=== PATIENT | female | born 1955 | race Caucasian/White ===

== ENCOUNTER → 2016-06-18 | Outpatient (CLI) | payer MEDICAID | LOC: FIMAGING 14:18 | PROVIDERS: ATTEND Family Medicine | DX: M25.561 Pain in right knee (principal); M25.461 Effusion, right knee ==

== ENCOUNTER 2016-10-24 12:58 | Emergency (ER) | payer MEDICAID ==
[2016-10-24 13:02] VITALS: TEMP 98.2
--- NOTE | 2016-10-24 13:19 | EDPHY ---
HPI/HX/ROS/PE/MDM Narrative: CHIEF COMPLAINT: "My pancreas is just driving me crazy" HPI: The patient is a 61 y/o female complaining of chronic epigastric pain secondary to pancreatitis. She reports that her pain began in 2002 following an ERCP procedure and she now has chronic daily pain which is managed by her pain clinic. She currently complains of pain located in a "U" underneath her left breast and extending into her epigastrium. She has had difficulty eating due to nausea and has been unable to eat anything today. She reports associated non bloody vomiting. She notes that her doctors have been reducing her pain meds due to an upcoming ankle surgery. She is here because she wants help controlling pain and wants to be admitted if possible. REVIEW OF SYSTEMS: Aside from elements discussed in the HPI, a comprehensive 10-point review of systems was reviewed and is negative. PMH: Chronic abdominal pain secondary to pancreatitis, ERCP in 2002, allergy related asthma, hypertension, ulcerative colitis I reviewed prior medical records including admission on 08/07/14 for abdominal pain. SOCIAL HISTORY: Lives with her son. No tobacco use. GI Doctor is Dr. Bernal at [facility]. PHYSICAL EXAM: General:Patient is alert, in no acute distress. ENT:Eyes are normal to inspection. ENT inspection normal. Neck: Normal inspection. Full range of motion. Respiratory:No respiratory distress. Breath sounds normal bilaterally. Cardiovascular: Regular rate and rhythm. Strong peripheral pulses. Normal cap refill. Abdomen: Moderate epigastric tenderness. There are no peritoneal signs. There are normal bowel sounds. Back: Normal to inspection. No tenderness to palpation. Skin: Normal color. No rash. Warm and dry. Extremities: Normal appearance. Full range of motion. Neuro: Oriented x3. Normal motor function. Normal sensory function. ED Course: This is a 64 y/o female with a history of chronic pain presenting with the same epigastric pain today as prior and is complaining of difficulty eating due to nausea. She notes her pain medication dosing has recently been decreased. She has moderate epigastric tenderness but her exam is otherwise unremarkable. Plan for IV, basic labs and 1L IV NS. Reassessed patient and discussed lab work. Her lipase is within normal limits. She confirms she has access to pain and nausea medication at home. She does not meet criteria for admission. I've recommended following up with her pain doctor or PCP for continued symptoms. Return precautions given. She understands follow up instructions. MDM: This patient presents with what she describes as an exacerbation of her chronic abdominal pain related to pancreatitis, and states it is exactly the same as prior pancreatitis pain. She admits that her chronic pain meds have been decreased by her physician in order to prepare for ankle surgery. She has not vomited here in the ED. Her lipase is normal, as are the rest of her LFTs. She is under a pain contract. She was given IV hydration here and has a reassuring exam. The patient requests admission to the hospital, which appears to be similar to other ED visits, but I explained to her that I see no medical indication necessitating admission. She is clearly not dehydrated, and there is no objective evidence of acute pancreatitis. I suggested the she discuss her symptoms with her pain specialist. - Data Points Laboratory Results: Laboratory Results 10/24/16 14:00 10/24/16 14:00 10/24/16 10/24/16 14:00 14:00 WBC 6.12 10^3/uL 10^3/uL (3.80-9.50) RBC 4.33 10^6/uL 10^6/uL (4.18-5.33) Hgb 14.1 g/dL g/dL (12.6-16.3) Hct 41.2 % % (38.0-47.0) MCV 95.2 fL fL (81.5-99.8) MCH 32.6 pg pg (27.9-34.1) MCHC 34.2 g/dL g/dL (32.4-36.7) RDW 13.5 % % (11.5-15.2) Plt Count 206 10^3/uL 10^3/uL (150-400) MPV 9.7 fL fL (8.7-11.7) Neut % (Auto) 57.1 % % (39.3-74.2) Lymph % (Auto) 32.7 % % (15.0-45.0) [place] % (Auto) 6.9 % % (4.5-13.0) Eos % (Auto) 2.8 % % (0.6-7.6) Baso % (Auto) 0.3 % % (0.3-1.7) Nucleat RBC Rel Count 0.0 % % (0.0-0.2) Absolute Neuts (auto) 3.50 10^3/uL 10^3/uL (1.70-6.50) Absolute Lymphs (auto) 2.00 10^3/uL 10^3/uL (1.00-3.00) Absolute Monos (auto) 0.42 10^3/uL 10^3/uL (0.30-0.80) Absolute Eos (auto) 0.17 10^3/uL 10^3/uL (0.03-0.40) Absolute Basos (auto) 0.02 10^3/uL 10^3/uL (0.02-0.10) Absolute Nucleated RBC 0.00 10^3/uL 10^3/uL (0-0.01) Immature Gran % 0.2 % % (0.0-1.1) Immature Gran # 0.01 10^3/uL 10^3/uL (0.00-0.10) Sodium 137 mEq/L mEq/L (134-144) Potassium 5.1 mEq/L mEq/L (3.5-5.2) Chloride 103 mEq/L mEq/L (97-110) Carbon Dioxide 23 mEq/l mEq/l (22-31) Anion Gap 11 mEq/L mEq/L (8-16) BUN 17 mg/dL mg/dL (7-23) Creatinine 0.9 mg/dL mg/dL (0.6-1.0) Estimated GFR > 60 Glucose 80 mg/dL mg/dL (70-100) Calcium 9.6 mg/dL mg/dL (8.5-10.4) Total Bilirubin 0.8 mg/dL mg/dL (0.1-1.4) Conjugated Bilirubin 0.3 mg/dL mg/dL (0.0-0.5) Unconjugated Bilirubin 0.5 mg/dL mg/dL (0.0-1.1) AST 31 IU/L IU/L (14-46) ALT 36 IU/L IU/L (9-52) Alkaline Phosphatase 80 IU/L IU/L (38-126) Total Protein 7.3 g/dL g/dL (6.3-8.2) Albumin 4.1 g/dL g/dL (3.5-5.0) Lipase 98 IU/L IU/L (23-300) Medications Given: Discontinued Medications Sodium Chloride (Ns) 1,000 mls @ 0 mls/hr IV EDNOW ONE; Wide Open PRN Reason: Protocol Stop: 10/24/16 13:25 Last Admin: 10/24/16 14:04 Dose: 1,000 mls General Time Seen by Provider: 10/24/16 13:16 Initial Vital Signs: Initial Vital Signs Temperature (C) 36.8 C 10/24/16 13:00 Heart Rate 63 10/24/16 13:00 Respiratory Rate 16 10/24/16 13:00 Blood Pressure 158/90 H 10/24/16 13:00 O2 Sat (%) 91 L 10/24/16 13:00 O2 Delivery Mode Room Air Allergies/Adverse Reactions: ciprofloxacin [From Cipro] Allergy (Severe, Verified 06/13/15 20:19) RUINED LIGAMENTS AND TENDONS ciprofloxacin HCl [From Cipro] Allergy (Severe, Verified 06/13/15 20:19) RUINED LIGAMENTS AND TENDONS levofloxacin [From Levaquin] Allergy (Severe, Verified 06/13/15 20:19) RUINED LIGAMENTS AND TENDONS NSAIDS (Non-Steroidal Anti-Inflamma [Nsaids] Allergy (Severe, Verified 06/13/15 20:19) Other-Enter Comments atropine sulfate [From Lomotil] Allergy (Unknown, Verified 06/13/15 20:19) diphenoxylate HCl [From Lomotil] Allergy (Unknown, Verified 06/13/15 20:19) methylprednisolone sodium succinate [From Solu-Medrol] Allergy (Verified 20:19) Home Medications: Medication Instructions Recorded Albuterol [Proventil Inhaler HFA 2 puffs PO Q4 PRN 06/24/13 (*)] Calcium Carb/Vit D3/Minerals 600 mg PO BID 06/24/13 [Calcium 1,200 mg Tablet Chew] Diazepam [Valium 10 MG (*)] 10 mg PO HS PRN 06/24/13 Fluticasone Nasal [Flonase Nasal 2 sprays NASAL DAILY 06/24/13 [place]] Fluticasone/Salmeter 100/50Mcg 1 puffs IH BID 06/24/13 [Advair 100/50 (*)] Furosemide [Lasix 20 MG (*)] 20 mg PO TID 06/24/13 Herbals/Supplements -Info Only 1 each PO AD 06/24/13 Lipase/Protease/Amylase [Creon 24 2 cap PO QID 06/24/13 (*)] Venlafaxine Xr [Effexor Xr] 300 mg PO DAILY 06/24/13 oxyCODONE CR [Oxycontin] 80 mg PO BID 06/24/13 oxyCODONE IR [Oxycodone Ir (*)] 30 mg PO Q6H PRN 06/24/13 valACYclovir [Valtrex (*)] 500 mg PO BID 06/24/13 Atenolol [Tenormin 50 mg (*)] 50 mg PO DAILY 08/16/13 Diclofenac Sodium [Voltaren] 1 he TP QID PRN 08/07/14 Montelukast Sodium [Singulair 10 10 mg PO DAILY@1800 08/07/14 mg (*)] [place]-3 Ethyl Est-Lovaza [Lovaza 1 2 gm PO BID 08/07/14 gm (*)] Promethazine HCl 25 mg PO BID PRN 08/07/14 Ranitidine HCl [Zantac] 150 mg PO BID 08/07/14 Vitamin B Complex [Super B-50 1 each PO DAILY 08/07/14 Complex] Departure - Departure Disposition: Home, Routine, Self-Care Clinical Impression: Chronic abdominal pain, Nausea Condition: Good Instructions: Chronic Abdominal Pain (ED) Additional Instructions: 1. Take your prescribed medications as directed for symptoms. 2. Follow up with your pain specialist as needed for unimproved symptoms. Referrals: Patient,NotPresent [Primary Care Provider] - As per Instructions [facility],. [Clinic] - As per Instructions Report Scribed for: Ashok Champagne Report Scribed by: Christen Galvez Date of Report: 10/24/16 Time of Report: 13:29 Physician Review and Approval Statement: Portions of this note were transcribed by an ED scribe. I personally performed the history, physical exam, and medical decision making; and confirm the accuracy of the information in the transcribed note.
[2016-10-24] MEDS ORDERED: NS 1,000 ML IV ONE (13:24)
[2016-10-24 14:06] LABS: % IMMATURE GRANULYOCYTES 0.2 % (0.0-1.1); ABSOLUTE IMMATURE GRANULOCYTES 0.01 10^3/uL (0.00-0.10); ADD DIFF? NO; ADD MORPH? NO; ADD SCAN? NO; ATYPICAL LYMPHOCYTE FLAG 10 (0-99); FRAGMENT RBC FLAG 0 (0-99); HEMATOCRIT 41.2 % (38.0-47.0); HEMOGLOBIN 14.1 g/dL (12.6-16.3); LEFT SHIFT FLG 0 (0-99); LIPEMIA HEMOLYSIS FLAG 90 (0-99); MEAN CELL HEMOGLOBIN 32.6 pg (27.9-34.1); MEAN CELL HEMOGLOBIN CONCENTR. 34.2 g/dL (32.4-36.7); MEAN CELL VOLUME 95.2 fL (81.5-99.8); MEAN PLATELET VOLUME 9.7 fL (8.7-11.7); PLATELET CLUMPS FLAG 0 (0-99); PLATELET COUNT 206 10^3/uL (150-400); RED BLOOD CELL COUNT 4.33 10^6/uL (4.18-5.33); RED CELL DISTRIBUTION WIDTH 13.5 % (11.5-15.2)
[2016-10-24 14:19] LABS: ALANINE AMINOTRANSFERASE 36 IU/L (9-52); ALBUMIN 4.1 g/dL (3.5-5.0); ALKALINE PHOSPHATASE 80 IU/L (38-126); ANION GAP 11 mEq/L (8-16); ASPARTATE AMINOTRANSFERASE 31 IU/L (14-46); BILIRUBIN,TOTAL 0.8 mg/dL (0.1-1.4); BILIRUBIN-CONJUGATED 0.3 mg/dL (0.0-0.5); BILIRUBIN-UNCONJUGATED 0.5 mg/dL (0.0-1.1); CALCIUM 9.6 mg/dL (8.5-10.4); CARBON DIOXIDE 23 mEq/l (22-31); CHLORIDE 103 mEq/L (97-110); CREATININE 0.9 mg/dL (0.6-1.0); GLOMERULAR FILTRATION RATE > 60; GLUCOSE 80 mg/dL (70-100); POTASSIUM 5.1 mEq/L (3.5-5.2); SODIUM 137 mEq/L (134-144); TOTAL PROTEIN 7.3 g/dL (6.3-8.2)
[2016-10-24 15:06] VITALS: BP 143/82; PULSE 70; RESP 20; O2SAT 93
== END 2016-10-24 15:06 | disposition home or self-care (01) ==
DX: R10.13 Epigastric pain (principal); R11.0 Nausea; J45.909 Unspecified asthma, uncomplicated; I10 Essential (primary) hypertension; E86.9 Volume depletion, unspecified; G89.29 Other chronic pain

== ENCOUNTER 2016-12-17 07:54 | Emergency (ER) | payer MEDICAID ==
--- NOTE | 2016-12-17 07:50 | EDPHY ---
H & P Constitutional: Initial Vital Signs Temperature (C) 38.3 C 12/17/16 07:54 Heart Rate 64 12/17/16 07:54 Respiratory Rate 18 12/17/16 07:54 Blood Pressure 153/110 H 12/17/16 07:54 O2 Sat (%) 95 12/17/16 07:54 O2 Delivery Mode Room Air Allergies/Adverse Reactions: ciprofloxacin [From Cipro] Allergy (Severe, Verified 06/13/15 20:19) RUINED LIGAMENTS AND TENDONS ciprofloxacin HCl [From Cipro] Allergy (Severe, Verified 06/13/15 20:19) RUINED LIGAMENTS AND TENDONS levofloxacin [From Levaquin] Allergy (Severe, Verified 06/13/15 20:19) RUINED LIGAMENTS AND TENDONS NSAIDS (Non-Steroidal Anti-Inflamma [Nsaids] Allergy (Severe, Verified 06/13/15 20:19) Other-Enter Comments atropine sulfate [From Lomotil] Allergy (Unknown, Verified 06/13/15 20:19) diphenoxylate HCl [From Lomotil] Allergy (Unknown, Verified 06/13/15 20:19) methylprednisolone sodium succinate [From Solu-Medrol] Allergy (Verified 20:19) Home Medications: Medication Instructions Recorded Albuterol [Proventil Inhaler HFA 2 puffs PO Q4 PRN 06/24/13 (*)] Calcium Carb/Vit D3/Minerals 600 mg PO BID 06/24/13 [Calcium 1,200 mg Tablet Chew] Diazepam [Valium 10 MG (*)] 10 mg PO HS PRN 06/24/13 Fluticasone Nasal [Flonase Nasal 2 sprays NASAL DAILY 06/24/13 [place]] Fluticasone/Salmeter 100/50Mcg 1 puffs IH BID 06/24/13 [Advair 100/50 (*)] Furosemide [Lasix 20 MG (*)] 20 mg PO TID 06/24/13 Herbals/Supplements -Info Only 1 each PO AD 06/24/13 Lipase 24,000/Amylase/Protease 2 cap PO QID 06/24/13 [Creon 24 (*)] Venlafaxine Xr [Effexor Xr] 300 mg PO DAILY 06/24/13 oxyCODONE CR [Oxycontin] 80 mg PO BID 06/24/13 oxyCODONE IR [Oxycodone Ir (*)] 30 mg PO Q6H PRN 06/24/13 valACYclovir [Valtrex (*)] 500 mg PO BID 06/24/13 Atenolol [Tenormin 50 mg (*)] 50 mg PO DAILY 08/16/13 Diclofenac Sodium [Voltaren] 1 eh TP QID PRN 08/07/14 Montelukast Sodium [Singulair 10 10 mg PO DAILY@1800 08/07/14 mg (*)] [place]-3 Ethyl Est-Lovaza [Lovaza 1 2 gm PO BID 08/07/14 gm (*)] Promethazine HCl 25 mg PO BID PRN 08/07/14 Ranitidine HCl [Zantac] 150 mg PO BID 08/07/14 Vitamin B Complex [Super B-50 1 each PO DAILY 08/07/14 Complex] Medical Decision Making - Diagnostics Imaging Results: Imaging Impressions Abdomen/Pelvis Ultrasound 12/17/16 08:02 Impression: There is no evidence of hydronephrosis. Findings were discussed with Aman Simmons MD at 9:06, on 12/17/2016. Imaging: Discussed imaging studies w/ boat laborer Radiologist ED Course/Re-evaluation: CHIEF COMPLAINT: "Kidney pain" HISTORY OF PRESENT ILLNESS: The patient is a 61 y/o female arriving via EMS complaining of "left kidney pain" and yellow urine onset 24 hours ago. Her medical history includes hypertension, chronic pancreatitis, and chronic pain. She has a history of prior kidney and UTI infections so she started taking some left over Doxycycline yesterday. She has associated dysuria, polyuria, and suprapubic pain that began around the same time as her kidney pain. She denies fever and vomiting. REVIEW OF SYSTEMS: A 10 point review of systems was performed and is negative with the exception of the elements mentioned in the history of present illness. PHYSICAL EXAM: HR, BP, O2 Sat, RR. Temp noted General Appearance: Alert, well hydrated, appropriate, and non-toxic appearing. Head: Atraumatic without scalp tenderness or obvious injury Eyes: Pupils equal, round, reactive to light and accommodation, EOMI, no trauma , no injection. Nose: Atraumatic, no rhinorrhea, clear. Throat: There is no erythema or exudates, no lesions, normal tonsils, mucus membranes moist. Neck: Supple,nontender, no lymphadenopathy. Respiratory: No retractions, no distress, no wheezes, and no accessory muscle use. Lungs are clear to auscultation bilaterally. Cardiovascular: Regular rate and rhythm, no murmurs, rubs, or gallops. Good capillary refill all extremities. Gastrointestinal: Abdomen is soft, mild suprapubic tenderness, non-distended, no masses, no rebound, no guarding, no peritoneal signs. Musculoskeletal: Normal active ROM of all extremities, atraumatic. Left CVA tenderness. Neurological: Alert, appropriate, and interactive. Nonfocal neuro exam. Skin: No rashes, good turgor, no nodules on palpation. Past medical history: Hypertension, chronic pancreatitis, frequent UTIs, "smaller right kidney," fibromyalgia, arthritis, chronic pain Past surgical history: hand surgery, ERCP Family history: noncontributory Social history: Lives with her son. No tobacco use. Prior medical records reviewed including ED visit 10/24/16 for abdominal pain. DIAGNOSTICS/PROCEDURES/CRITICAL CARE TIME: Left renal US: no hydronephrosis, no abscess DIFFERENTIAL DIAGNOSIS: The differential diagnosis for the patient's flank pain included but was not limited to chronic pain, musculoskeletal causes, kidney stone, pyelonephritis, shingles, diverticulitis, appendicitis, and aortic aneurysm. MEDICAL DECISION MAKING: This is a 61 y/o female with a history of chronic abdominal pain who presents with a 24-hour history of suprapubic pain, left flank pain, and urinary symptoms that feel the same as prior UTIs. Plan for renal US, labs, UA, and symptom management. 1L IV NS and 30mg IV Toradol administered. Reassessed patient and discussed work up. She is resting comfortably and sleeping. She has been able to ambulate to the bathroom without issue. Her urine shows a small amount of blood, but her US is negative. She may have passed a small kidney stone. Her LFTs, lipase, and other labs are WNL. She's had multiple CTs related to her chronic abdominal pain, so we have opted to not expose her to more radiation today. She does not want to go home because her son "is a shooter" and came home drunk and won't help her get food. She says, "it would be best if you admitted me because I can't take care of myself because I'm on such a low dose of my pain meds and I can't take it. If you don' t admit me I will commit myself." We will involve case management and see what options and guidance is available to meet her social needs as she does not have a medical reason to be admitted here. weatherization operations manager provided resources to patient. She will be discharged home with standard kidney stone care and follow up instructions. Return precautions given. She is comfortable with this plan. - Data Points Laboratory Results: Laboratory Results 12/17/16 08:15 12/17/16 08:15 12/17/16 12/17/16 12/17/16 08:15 08:15 08:05 WBC 7.72 10^3/uL 10^3/uL (3.80-9.50) RBC 4.96 10^6/uL 10^6/uL (4.18-5.33) Hgb 16.5 g/dL H g/dL (12.6-16.3) Hct 46.5 % % (38.0-47.0) MCV 93.8 fL fL (81.5-99.8) MCH 33.3 pg pg (27.9-34.1) MCHC 35.5 g/dL g/dL (32.4-36.7) RDW 12.4 % % (11.5-15.2) Plt Count 184 10^3/uL 10^3/uL (150-400) MPV 9.9 fL fL (8.7-11.7) Neut % (Auto) 63.5 % % (39.3-74.2) Lymph % (Auto) 26.9 % % (15.0-45.0) [place] % (Auto) 6.2 % % (4.5-13.0) Eos % (Auto) 2.7 % % (0.6-7.6) Baso % (Auto) 0.4 % % (0.3-1.7) Nucleat RBC Rel Count 0.0 % % (0.0-0.2) Absolute Neuts (auto) 4.90 10^3/uL 10^3/uL (1.70-6.50) Absolute Lymphs (auto) 2.08 10^3/uL 10^3/uL (1.00-3.00) Absolute Monos (auto) 0.48 10^3/uL 10^3/uL (0.30-0.80) Absolute Eos (auto) 0.21 10^3/uL 10^3/uL (0.03-0.40) Absolute Basos (auto) 0.03 10^3/uL 10^3/uL (0.02-0.10) Absolute Nucleated RBC 0.00 10^3/uL 10^3/uL (0-0.01) Immature Gran % 0.3 % % (0.0-1.1) Immature Gran # 0.02 10^3/uL 10^3/uL (0.00-0.10) Sodium 140 mEq/L mEq/L (134-144) Potassium 4.2 mEq/L mEq/L (3.5-5.2) Chloride 102 mEq/L mEq/L (97-110) Carbon Dioxide 21 mEq/l L mEq/l (22-31) Anion Gap 17 mEq/L H mEq/L (8-16) BUN 14 mg/dL mg/dL (7-23) Creatinine 0.8 mg/dL mg/dL (0.6-1.0) Estimated GFR > 60 Glucose 99 mg/dL mg/dL (70-100) Calcium 10.4 mg/dL mg/dL (8.5-10.4) Total Bilirubin 1.2 mg/dL mg/dL (0.1-1.4) Conjugated Bilirubin 0.5 mg/dL mg/dL (0.0-0.5) Unconjugated Bilirubin 0.7 mg/dL mg/dL (0.0-1.1) AST 20 IU/L IU/L (14-46) ALT 28 IU/L IU/L (9-52) Alkaline Phosphatase 94 IU/L IU/L (38-126) Total Protein 8.5 g/dL H g/dL (6.3-8.2) Albumin 5.1 g/dL H g/dL (3.5-5.0) Lipase 85 IU/L IU/L (23-300) Urine Color YELLOW Urine Appearance HAZY Urine pH 5.0 (5.0-7.5) Ur Specific [place] 1.012 (1.002-1.030) Urine Protein NEGATIVE (NEGATIVE) Urine Ketones NEGATIVE (NEGATIVE) Urine Blood 1+ H (NEGATIVE) Urine Nitrate NEGATIVE (NEGATIVE) Urine Bilirubin NEGATIVE (NEGATIVE) Urine Urobilinogen NEGATIVE EU EU (0.2-1.0) Ur Leukocyte Esterase TRACE H (NEGATIVE) Urine RBC 3-5 /hpf H /hpf (0-3) Urine WBC 1-3 /hpf /hpf (0-3) Ur Epithelial Cells TRACE /lpf /lpf (NONE-1+) Urine Glucose NEGATIVE (NEGATIVE) Medications Given: Discontinued Medications Sodium Chloride (Ns) 1,000 mls @ 0 mls/hr IV EDNOW ONE; Wide Open PRN Reason: Protocol Stop: 12/17/16 08:03 Last Admin: 12/17/16 08:21 Dose: 1,000 mls Ketorolac Tromethamine (Toradol) 30 mg IVP EDNOW ONE Stop: 12/17/16 08:03 Last Admin: 12/17/16 08:21 Dose: 30 mg Departure - Departure Disposition: Home, Routine, Self-Care Clinical Impression: Flank pain, Kidney stone Condition: Good Instructions: How to Strain Your Urine (ED), Dysuria (ED), Flank Pain (ED) Additional Instructions: 1. Use your pain medications as prescribed as needed for pain. If you require additional pain control please talk with your pain management doctor. 2. Strain your urine as directed. 3. Follow up with the urologist you have been referred to. 4. Return to the ED for worsening of condition. Referrals: Luis Swift MD [Medical Doctor] - As per Instructions Report Scribed for: Aman Simmons Report Scribed by: Christen Galvez Date of Report: 12/17/16 Time of Report: 08:04
[2016-12-17] MEDS ORDERED: KETOROLAC 30 MG/1 ML SDV IVP ONE (08:02)
[2016-12-17] MEDS ORDERED: NS 1,000 ML IV ONE (08:02)
[2016-12-17 08:08] VITALS: RESP 18
[2016-12-17 08:18] LABS: COLOR YELLOW; LEUKOCYTE ESTERASE,URINE TRACE (NEGATIVE); NITRITE,URINE NEGATIVE (NEGATIVE)
[2016-12-17 08:24] LABS: % IMMATURE GRANULYOCYTES 0.3 % (0.0-1.1); ABSOLUTE IMMATURE GRANULOCYTES 0.02 10^3/uL (0.00-0.10); ADD DIFF? NO; ADD MORPH? NO; ADD SCAN? NO; ATYPICAL LYMPHOCYTE FLAG 0 (0-99); FRAGMENT RBC FLAG 0 (0-99); HEMATOCRIT 46.5 % (38.0-47.0); HEMOGLOBIN 16.5 g/dL (12.6-16.3); LEFT SHIFT FLG 0 (0-99); LIPEMIA HEMOLYSIS FLAG 90 (0-99); MEAN CELL HEMOGLOBIN 33.3 pg (27.9-34.1); MEAN CELL HEMOGLOBIN CONCENTR. 35.5 g/dL (32.4-36.7); MEAN CELL VOLUME 93.8 fL (81.5-99.8); MEAN PLATELET VOLUME 9.9 fL (8.7-11.7); PLATELET CLUMPS FLAG 0 (0-99); PLATELET COUNT 184 10^3/uL (150-400); RED BLOOD CELL COUNT 4.96 10^6/uL (4.18-5.33); RED CELL DISTRIBUTION WIDTH 12.4 % (11.5-15.2)
[2016-12-17 08:41] LABS: ALANINE AMINOTRANSFERASE 28 IU/L (9-52); ALBUMIN 5.1 g/dL (3.5-5.0); ALKALINE PHOSPHATASE 94 IU/L (38-126); ANION GAP 17 mEq/L (8-16); ASPARTATE AMINOTRANSFERASE 20 IU/L (14-46); BILIRUBIN,TOTAL 1.2 mg/dL (0.1-1.4); BILIRUBIN-CONJUGATED 0.5 mg/dL (0.0-0.5); BILIRUBIN-UNCONJUGATED 0.7 mg/dL (0.0-1.1); CALCIUM 10.4 mg/dL (8.5-10.4); CARBON DIOXIDE 21 mEq/l (22-31); CHLORIDE 102 mEq/L (97-110); CREATININE 0.8 mg/dL (0.6-1.0); GLOMERULAR FILTRATION RATE > 60; GLUCOSE 99 mg/dL (70-100); POTASSIUM 4.2 mEq/L (3.5-5.2); SODIUM 140 mEq/L (134-144); TOTAL PROTEIN 8.5 g/dL (6.3-8.2)
[2016-12-17 09:27] VITALS: BP 130/77; PULSE 78; O2SAT 96
[2016-12-17 10:07] VITALS: TEMP 98.6
--- NOTE | 2016-12-17 11:08 | ASMTCMCOM ---
CM Note CM Note Notes: Case management met with patient to discuss plans for discharge. Patient states that she has had a fever for the past month and has been feeling weak. She admits to sharing this with her primary care doctor and I have encouraged her to follow up with PCP after this visit. Patient tells me that she "is burning up now" and wants to be sure ER physician is aware of her fevers. Patient also asks CM to call her son Mamadou to tell him that she is here and to request a ride home. Patient would also like CM to fax ER visit to [facility]. Patient's temperature at this time is 37 (98.5). I have confirmed with Dr. Simmons patient's current temperature as well as patient's request that he be reminded of her high temperatures over the past month. Patient again encouraged (by me) to follow up with her PCP. I have called Mamadou in patient's presence and he is unavailable to pick patient up. I have faxed patient's ER report to [facility] per the patient's request and provided patient with a cab voucher to get home. Date Signed: 12/17/2016 11:08 AM Electronically Signed By:Ness Mane RN
== END 2016-12-17 10:51 | disposition home or self-care (01) ==
LOC: EDUNIT#
DX: N20.0 Calculus of kidney (principal); E86.9 Volume depletion, unspecified
CPT/HCPCS: 96374; J1885

== ENCOUNTER 2016-12-26 10:35 | Emergency (ER) | payer MEDICAID ==
[2016-12-26] MEDS ORDERED: NS 1,000 ML IV ONE (10:45)
[2016-12-26 10:56] LABS: % IMMATURE GRANULYOCYTES 0.2 % (0.0-1.1); ABSOLUTE IMMATURE GRANULOCYTES 0.02 10^3/uL (0.00-0.10); ADD DIFF? NO; ADD MORPH? NO; ADD SCAN? NO; ATYPICAL LYMPHOCYTE FLAG 0 (0-99); FRAGMENT RBC FLAG 0 (0-99); HEMATOCRIT 43.4 % (38.0-47.0); HEMOGLOBIN 15.6 g/dL (12.6-16.3); LEFT SHIFT FLG 0 (0-99); LIPEMIA HEMOLYSIS FLAG 90 (0-99); MEAN CELL HEMOGLOBIN 33.1 pg (27.9-34.1); MEAN CELL HEMOGLOBIN CONCENTR. 35.9 g/dL (32.4-36.7); MEAN CELL VOLUME 92.1 fL (81.5-99.8); MEAN PLATELET VOLUME 9.2 fL (8.7-11.7); PLATELET CLUMPS FLAG 0 (0-99); PLATELET COUNT 244 10^3/uL (150-400); RED BLOOD CELL COUNT 4.71 10^6/uL (4.18-5.33); RED CELL DISTRIBUTION WIDTH 12.7 % (11.5-15.2)
[2016-12-26 11:15] LABS: COLOR YELLOW; LEUKOCYTE ESTERASE,URINE NEGATIVE (NEGATIVE); NITRITE,URINE NEGATIVE (NEGATIVE)
[2016-12-26 11:19] LABS: MUCUS TRACE /lpf (NONE-1+)
[2016-12-26 11:26] LABS: ALANINE AMINOTRANSFERASE 23 IU/L (9-52); ALBUMIN 4.6 g/dL (3.5-5.0); ALKALINE PHOSPHATASE 81 IU/L (38-126); ANION GAP 18 mEq/L (8-16); ASPARTATE AMINOTRANSFERASE 19 IU/L (14-46); BILIRUBIN,TOTAL 0.8 mg/dL (0.1-1.4); BILIRUBIN-CONJUGATED 0.2 mg/dL (0.0-0.5); BILIRUBIN-UNCONJUGATED 0.6 mg/dL (0.0-1.1); CALCIUM 9.8 mg/dL (8.5-10.4); CARBON DIOXIDE 21 mEq/l (22-31); CHLORIDE 102 mEq/L (97-110); CREATININE 0.7 mg/dL (0.6-1.0); GLOMERULAR FILTRATION RATE > 60; GLUCOSE 109 mg/dL (70-100); POTASSIUM 4.5 mEq/L (3.5-5.2); SODIUM 141 mEq/L (134-144); TOTAL PROTEIN 7.3 g/dL (6.3-8.2)
[2016-12-26 12:18] VITALS: RESP 16
--- NOTE | 2016-12-26 13:19 | EDPHY ---
H & P Stated Complaint: back/flank pain HPI/ROS: Chief complaint: Right-sided back and flank pain History of present illness: This is a 61-year-old female who presents to the emergency department for right-sided back and flank pain. She is concerned she has kidney stones. She has a history of kidney stones. She states she was seen in the emergency room last week and had a kidney stone on the left. She reports this feels similar but is on the right. She denies precipitating factors. Denies alleviating factors. She denies other associated signs or symptoms including no fevers, no nausea or vomiting, no abdominal pain, no dysuria or hematuria, no diarrhea or constipation. Review of systems: A 10 point review of systems was obtained and other than described above was negative - Personal History Current Tetanus Diphtheria and Acellular Pertussis (TDAP): Yes Tetanus Vaccine Date: WITHIN 10 YRS - Medical/Surgical History Hx Asthma: Yes Hx Chronic Respiratory Disease: Yes Hx Diabetes: No Hx Cardiac Disease: No Hx Renal Disease: No Hx Cirrhosis: No Hx Alcoholism: No Hx HIV/AIDS: No Hx Splenectomy or Spleen Trauma: No Other PMH: herpes, HTN, PANCREATITIS ORHTO KNEE AND WRIST SURG, HYSTERECTOMY, DVT,PE, asthma, gall bladder, foot surgery, fibromyalgia - Social History Smoking Status: Never smoked - Physical Exam Exam: General Appearance: Alert, nontoxic. Eyes: Pupils equal and round no pallor or injection. ENT, Mouth: Mucous membranes moist. Respiratory: There are no retractions, lungs are clear to auscultation. Cardiovascular: Regular rate and rhythm. Gastrointestinal: Abdomen is soft and non tender, no masses, bowel sounds normal. Genitourinary: No CVA tenderness Neurological: Alert and oriented x4. Strength and sensation intact and symmetrical. Skin: Warm and dry, no rashes. Musculoskeletal: Neck is supple non tender. Extremities are symmetrical, full range of motion. Psychiatric: Patient is oriented X 3, there is no agitation. Constitutional: Initial Vital Signs Temperature (C) 37.8 C 12/26/16 10:43 Heart Rate 82 12/26/16 10:43 Respiratory Rate 18 12/26/16 10:43 Blood Pressure 120/105 H 12/26/16 10:43 O2 Sat (%) 93 12/26/16 10:43 O2 Delivery Mode Room Air Allergies/Adverse Reactions: ciprofloxacin [From Cipro] Allergy (Severe, Verified 12/26/16 10:46) RUINED LIGAMENTS AND TENDONS ciprofloxacin HCl [From Cipro] Allergy (Severe, Verified 12/26/16 10:46) RUINED LIGAMENTS AND TENDONS levofloxacin [From Levaquin] Allergy (Severe, Verified 12/26/16 10:46) RUINED LIGAMENTS AND TENDONS NSAIDS (Non-Steroidal Anti-Inflamma [Nsaids] Allergy (Severe, Verified 12/26/16 10:46) Other-Enter Comments atropine sulfate [From Lomotil] Allergy (Unknown, Verified 12/26/16 10:46) diphenoxylate HCl [From Lomotil] Allergy (Unknown, Verified 12/26/16 10:46) methylprednisolone sodium succinate [From Solu-Medrol] Allergy (Verified 10:46) Home Medications: Medication Instructions Recorded Albuterol [Proventil Inhaler HFA 2 puffs PO Q4 PRN 06/24/13 (*)] Calcium Carb/Vit D3/Minerals 600 mg PO BID 06/24/13 [Calcium 1,200 mg Tablet Chew] Diazepam [Valium 10 MG (*)] 10 mg PO HS PRN 06/24/13 Fluticasone Nasal [Flonase Nasal 2 sprays NASAL DAILY 06/24/13 [place]] Fluticasone/Salmeter 100/50Mcg 1 puffs IH BID 06/24/13 [Advair 100/50 (*)] Furosemide [Lasix 20 MG (*)] 20 mg PO TID 06/24/13 Herbals/Supplements -Info Only 1 each PO AD 06/24/13 Lipase 24,000/Amylase/Protease 2 cap PO QID 06/24/13 [Creon 24 (*)] Venlafaxine Xr [Effexor Xr] 300 mg PO DAILY 06/24/13 oxyCODONE CR [Oxycontin] 80 mg PO BID 06/24/13 oxyCODONE IR [Oxycodone Ir (*)] 30 mg PO Q6H PRN 06/24/13 valACYclovir [Valtrex (*)] 500 mg PO BID 06/24/13 Atenolol [Tenormin 50 mg (*)] 50 mg PO DAILY 08/16/13 Diclofenac Sodium [Voltaren] 1 he TP QID PRN 08/07/14 Montelukast Sodium [Singulair 10 10 mg PO DAILY@1800 08/07/14 mg (*)] [place]-3 Ethyl Est-Lovaza [Lovaza 1 2 gm PO BID 08/07/14 gm (*)] Promethazine HCl 25 mg PO BID PRN 08/07/14 Ranitidine HCl [Zantac] 150 mg PO BID 08/07/14 Vitamin B Complex [Super B-50 1 each PO DAILY 08/07/14 Complex] Medical Decision Making - Diagnostics Imaging Results: Imaging Impressions Abdomen/Pelvis CT 12/26/16 12:07 Impression: 1. There is no CT evidence of nephrolithiasis or obstructive uropathy. 2. Status post cholecystectomy with stable prominence of the common bile duct and some mild left-sided pneumobilia, unchanged from 2015. 3. Status post hysterectomy. 4. 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 Attention: This CT examination is specifically designed to evaluate patients who are clinically suspected of having acute obstructive uropathy. This examination does not use radiographic contrast, and as such, provides only a limited evaluation of the abdomen, pelvis, and retroperitoneum. If there is further clinical suspicion for pathological conditions other than obstructive uropathy, a complete CT evaluation of the abdomen and pelvis utilizing intravenous, oral, and rectal contrast should be considered. Findings were discussed with GO Kramer at 13:17, on 12/26/2016. Imaging: Discussed imaging studies w/ call or contact centre coach Radiologist ED Course/Re-evaluation: Patient is discussed with my secondary supervising physician Dr. Cristian Krishna. Patient presents to the emergency department for left flank pain. On presentation she is nontoxic. Afebrile and vital signs are stable. Physical exam is benign. Laboratory studies, urinalysis and CT scan are unremarkable. I discussed with patient is not clear as to the cause of her symptoms. I believe she is appropriate for outpatient management. Home care is discussed. She is to follow up with a primary care doctor for recheck. Return precautions are given. Patient voiced understanding and agreement with plan. Differential Diagnosis: Included but not limited to musculoskeletal pain, urinary tract infection, nephrolithiasis, colitis, gastroenteritis, peptic ulcer disease - Data Points Laboratory Results: Laboratory Results 12/26/16 10:50 12/26/16 10:50 12/26/16 12/26/16 12/26/16 10:55 10:50 10:50 WBC 8.71 10^3/uL 10^3/uL (3.80-9.50) RBC 4.71 10^6/uL 10^6/uL (4.18-5.33) Hgb 15.6 g/dL g/dL (12.6-16.3) Hct 43.4 % % (38.0-47.0) MCV 92.1 fL fL (81.5-99.8) MCH 33.1 pg pg (27.9-34.1) MCHC 35.9 g/dL g/dL (32.4-36.7) RDW 12.7 % % (11.5-15.2) Plt Count 244 10^3/uL 10^3/uL (150-400) MPV 9.2 fL fL (8.7-11.7) Neut % (Auto) 69.3 % % (39.3-74.2) Lymph % (Auto) 22.3 % % (15.0-45.0) [place] % (Auto) 6.3 % % (4.5-13.0) Eos % (Auto) 1.6 % % (0.6-7.6) Baso % (Auto) 0.3 % % (0.3-1.7) Nucleat RBC Rel Count 0.0 % % (0.0-0.2) Absolute Neuts (auto) 6.03 10^3/uL 10^3/uL (1.70-6.50) Absolute Lymphs (auto) 1.94 10^3/uL 10^3/uL (1.00-3.00) Absolute Monos (auto) 0.55 10^3/uL 10^3/uL (0.30-0.80) Absolute Eos (auto) 0.14 10^3/uL 10^3/uL (0.03-0.40) Absolute Basos (auto) 0.03 10^3/uL 10^3/uL (0.02-0.10) Absolute Nucleated RBC 0.00 10^3/uL 10^3/uL (0-0.01) Immature Gran % 0.2 % % (0.0-1.1) Immature Gran # 0.02 10^3/uL 10^3/uL (0.00-0.10) Sodium 141 mEq/L mEq/L (134-144) Potassium 4.5 mEq/L mEq/L (3.5-5.2) Chloride 102 mEq/L mEq/L (97-110) Carbon Dioxide 21 mEq/l L mEq/l (22-31) Anion Gap 18 mEq/L H mEq/L (8-16) BUN 14 mg/dL mg/dL (7-23) Creatinine 0.7 mg/dL mg/dL (0.6-1.0) Estimated GFR > 60 Glucose 109 mg/dL H mg/dL (70-100) Calcium 9.8 mg/dL mg/dL (8.5-10.4) Total Bilirubin 0.8 mg/dL mg/dL (0.1-1.4) Conjugated Bilirubin 0.2 mg/dL mg/dL (0.0-0.5) Unconjugated Bilirubin 0.6 mg/dL mg/dL (0.0-1.1) AST 19 IU/L IU/L (14-46) ALT 23 IU/L IU/L (9-52) Alkaline Phosphatase 81 IU/L IU/L (38-126) Total Protein 7.3 g/dL g/dL (6.3-8.2) Albumin 4.6 g/dL g/dL (3.5-5.0) Lipase 90 IU/L IU/L (23-300) Urine Color YELLOW Urine Appearance HAZY Urine pH 6.0 (5.0-7.5) Ur Specific [place] 1.020 (1.002-1.030) Urine Protein 1+ H (NEGATIVE) Urine Ketones NEGATIVE (NEGATIVE) Urine Blood NEGATIVE (NEGATIVE) Urine Nitrate NEGATIVE (NEGATIVE) Urine Bilirubin NEGATIVE (NEGATIVE) Urine Urobilinogen NEGATIVE EU EU (0.2-1.0) Ur Leukocyte Esterase NEGATIVE (NEGATIVE) Urine RBC 1-3 /hpf /hpf (0-3) Urine WBC 1-3 /hpf /hpf (0-3) Ur Epithelial Cells TRACE /lpf /lpf (NONE-1+) Hyaline Casts 1-5 /lpf /lpf (0-1) Urine Mucus TRACE /lpf /lpf (NONE-1+) Urine Glucose NEGATIVE (NEGATIVE) Medications Given: Discontinued Medications Sodium Chloride (Ns) 1,000 mls @ 0 mls/hr IV EDNOW ONE; Wide Open PRN Reason: Protocol Stop: 12/26/16 10:46 Last Admin: 12/26/16 10:57 Dose: 1,000 mls Departure - Departure Disposition: Home, Routine, Self-Care Clinical Impression: Flank pain Condition: Good Instructions: Flank Pain (ED) Additional Instructions: Follow-up with her primary care doctor for recheck If symptoms worsen or new symptoms develop return to the emergency room for recheck Referrals: Rubi Benjamin MD [Primary Care Provider] - As per Instructions
[2016-12-26 13:42] VITALS: BP 112/74; PULSE 70; TEMP 98.2; O2SAT 95
== END 2016-12-26 13:42 | disposition home or self-care (01) ==
LOC: EDUNIT#
DX: R10.9 Unspecified abdominal pain (principal); J45.909 Unspecified asthma, uncomplicated; I10 Essential (primary) hypertension; E86.9 Volume depletion, unspecified; Z90.710 Acquired absence of both cervix and uterus

== ENCOUNTER → 2017-11-03 | Outpatient (CLI) | payer MEDICAID | LOC: FIMAGING 14:11 | PROVIDERS: ATTEND Family Medicine | DX: Z12.31 Encounter for screening mammogram for malignant neoplasm of breast (principal); Z13.820 Encounter for screening for osteoporosis; M85.89 Other specified disorders of bone density and structure, multiple sites; Z78.0 Asymptomatic menopausal state ==

== ENCOUNTER → 2018-05-08 | Outpatient (CLI) | payer OTHER, MEDICAID | LOC: FIMAGING 08:21 | PROVIDERS: ATTEND Family Medicine | DX: M79.641 Pain in right hand (principal); S60.021A Contusion of right index finger without damage to nail, initial encounter; W19.XXXA Unspecified fall, initial encounter; M19.041 Primary osteoarthritis, right hand ==